=== PATIENT | female | born 2000 | race Caucasian/White ===

== ENCOUNTER 2021-03-27 19:18 | Emergency (ER) | payer OTHER, MEDICAID ==
[~2021-03-27] VITALS: Ht 172.7 cm; Wt 89.8 kg
[2021-03-27] MEDS ORDERED: ZOFRAN ODT4 MG PO (21:24)
[2021-03-27 21:30] LABS: URINE BILIRUBIN NEGATIVE (Negative); URINE BLOOD NEGATIVE (Negative); URINE CLARITY CLEAR; URINE COLOR YELLOW; URINE GLUCOSE-RANDOM NEGATIVE (Negative); URINE KETONES NEGATIVE (Negative); URINE LEUKOCYTES-REFLEX NEGATIVE (Negative); URINE NITRITE-REFLEX NEGATIVE (Negative); URINE PROTEIN NEGATIVE (Negative); URINE SPECIFIC GRAVITY >= 1.030 (1.005-1.030); URINE UROBILINOGEN 0.2 E.U./dl (0.2-1.0)
[2021-03-27 21:37] VITALS: BP 151/70
== END 2021-03-27 21:37 | disposition home or self-care (01) ==
LOC: M.ERS 19:18
PROVIDERS: Emergency Medicine
DX: S06.0X0A Concussion without loss of consciousness, initial encounter (principal); W22.8XXA Striking against or struck by other objects, initial encounter; Y93.89 Activity, other specified; Y92.238 Other place in hospital as the place of occurrence of the external cause; Y99.0 Civilian activity done for income or pay

== ENCOUNTER 2021-06-12 18:47 | Emergency (ER) | payer OTHER, MEDICAID ==
[~2021-06-12] VITALS: Ht 160 cm; Wt 91.6 kg
[~2021-06-12 18:47] MED LIST: ZOFRAN ODT4 MG PO
[2021-06-12 21:25] LABS: URINE BILIRUBIN NEGATIVE (Negative); URINE BLOOD 2+ (Negative); URINE CLARITY CLEAR; URINE COLOR YELLOW; URINE GLUCOSE-RANDOM NEGATIVE (Negative); URINE KETONES 2+ (Negative); URINE LEUKOCYTES-REFLEX 1+ (Negative); URINE NITRITE-REFLEX NEGATIVE (Negative); URINE PROTEIN NEGATIVE (Negative); URINE SPECIFIC GRAVITY >= 1.030 (1.005-1.030); URINE UROBILINOGEN 0.2 E.U./dl (0.2-1.0)
[2021-06-12 21:34] LABS: BACTERIA-REFLEX >30 Many /HPF (None Seen); CASTS None Seen /LPF (None Seen); CRYSTALS None Seen /LPF (None Seen); MUCUS 0-3 Light strn/LPF (None Seen); SQUAMOUS >10 Many /LPF (0-3); URINE WBC-REFLEX 0-5 Rare /HPF (0-5)
[2021-06-12 21:35] LABS: URINE RBC 0-2 Rare /HPF (0-2)
[2021-06-12] MEDS ORDERED: NAPROXEN500 MG PO (23:41)
[2021-06-13 00:06] VITALS: BP 135/84
== END 2021-06-13 00:07 | disposition home or self-care (01) ==
LOC: M.ERS 18:47
PROVIDERS: Personal Emergency Response Attendant
DX: N72 Inflammatory disease of cervix uteri (principal); R10.2 Pelvic and perineal pain

== ENCOUNTER 2021-08-18 19:03 | Emergency (ER) | payer OTHER, MEDICAID ==
[~2021-08-18] VITALS: Ht 160 cm; Wt 90.7 kg
[~2021-08-18 19:03] MED LIST changes: +NAPROXEN500 MG PO
[2021-08-18 23:25] VITALS: BP 133/88
== END 2021-08-18 23:29 | disposition home or self-care (01) ==
LOC: M.ERS 19:03
DX: T18.5XXA Foreign body in anus and rectum, initial encounter (principal); X58.XXXA Exposure to other specified factors, initial encounter; Y93.89 Activity, other specified; Y92.89 Other specified places as the place of occurrence of the external cause; Y99.8 Other external cause status